=== PATIENT | male | born 1990 | race African-American/Black ===

== ENCOUNTER 2023-10-06 01:53 | Inpatient (IN) | payer SELFPAY ==
[2023-10-06 02:50] LABS: Glucose,Whole Blood 88 mg/dL (70-110)
[2023-10-06] MEDS ORDERED: VANCOMYCIN IV PER PHARMACY 1 EACH MISC MISCELLANE PRN (03:27)
--- NOTE | 2023-10-06 03:35 | ED ---
Skin/Abscess/FB HPI - General Chief complaint: Skin/Abscess/Foreign Body Stated complaint: Left leg injury Time Seen by Provider: 10/06/23 02:17 Source: patient Limitations: no limitations - History of Present Illness Initial comments: 33-year-old male presenting with chief complaint of wound to the left lower leg. Patient states that he has had this wound for the last month or 2. He denies any injury or trauma. States that for the last week it has been weeping and today it is sticking to his pants. He is unable to remove the fabric of the pants from the wound. He denies any fevers. No history of diabetes or hypertension. No history of neuropathy. No nausea vomiting or weakness. - Related Data Home Medications Medication Instructions Recorded Confirmed No Known Home Medications 10/06/23 10/06/23 Allergies Allergy/AdvReac Type Severity Reaction Status Date / Time No Known Allergies Allergy Verified 10/06/23 06:54 Review of Systems ROS Statement: Those systems with pertinent positive or pertinent negative responses have been documented in the HPI. ROS Other: All systems not noted in ROS Statement are negative. Past Medical History Past Medical History: No Reported History History of Any Multi-Drug Resistant Organisms: None Reported Past Surgical History: No Surgical Hx Reported Past Psychological History: No Psychological Hx Reported Smoking Status: Never smoker Past Alcohol Use History: Rare Past Drug Use History: None Reported General Exam Limitations: no limitations General appearance: alert, in no apparent distress Head exam: Present: atraumatic, normocephalic Eye exam: Present: normal appearance, EOMI Neck exam: Present: normal inspection Respiratory exam: Absent: respiratory distress Cardiovascular Exam: Present: regular rate Left Lower Leg exam: Present: deformity (There is a large ulceration present to the left lower leg. Normal capillary refill.) Neurological exam: Present: alert, oriented X3 Psychiatric exam: Present: normal affect, normal mood Skin exam: Present: other (Large ulceration to the left lower leg) Course Vital Signs 10/06/23 10/06/23 10/06/23 02:02 06:54 07:42 Temperature 98.8 F 97.9 F Pulse Rate 84 71 74 Respiratory 18 16 18 Rate Blood Pressure 138/79 126/78 130/78 O2 Sat by Pulse 98 95 98 Oximetry 10/06/23 10/06/23 10/06/23 09:15 10:52 11:39 Temperature Pulse Rate 81 89 74 Respiratory 18 16 18 Rate Blood Pressure 118/54 103/86 111/62 O2 Sat by Pulse 96 96 97 Oximetry 10/06/23 10/06/23 10/06/23 12:51 14:32 15:42 Temperature 98.3 F 98.5 F Pulse Rate 75 63 70 Respiratory 18 20 18 Rate Blood Pressure 117/62 134/59 146/82 O2 Sat by Pulse 95 97 95 Oximetry Medical Decision Making - Medical Decision Making Was pt. sent in by a medical professional or institution (, PA, DIGITAL ACCOUNT DIRECTOR, urgent care, hospital, or long-term...) When possible be specific @ -No Did you speak to anyone other than the patient for history (EMS, parent, family, police, friend...)? What history was obtained from this source @ -No Did you review nursing and triage notes (agree or disagree)? Why? @ -I reviewed and agree with nursing and triage notes Were old charts reviewed (outside hosp., previous admission, EMS record, old EKG, old radiological studies, urgent care reports/EKG's, long-term records)? Report findings @ -No old charts were reviewed Differential Diagnosis (chest pain, altered mental status, abdominal pain women, abdominal pain men, vaginal bleeding, weakness, fever, dyspnea, syncope, headache, dizziness, GI bleed, back pain, seizure, CVA, palpatations, mental health, musculoskeletal)? @ -Differential Musculoskeletal Muscular strain, contusion, ligament sprain, fracture, arthritis, septic arthritis, bursitis, cellulitis, muscle spasm, nerve compression, DVT, arterial occlusion, herpes zoster, electrolyte abnormality, tumor.... This is not meant to be in all inclusive list EKG interpreted by me (3pts min.). @ -As above X-rays interpreted by me (1pt min.). @ -X-ray shows a triple arthrodesis changes with osseous ankylosis. Soft tissue swelling about the left lower extremity extending to the foot. No evidence of soft tissue gas. Consider cross-sectional imaging or MRI of further concern for irregularity noted overlying the calcaneus which may relate to ulcer formation. Pes planus. Hammertoe deformities noted to the second-fifth digits. CT interpreted by me (1pt min.). @ -None done U/S interpreted by me (1pt. min.). @ -None done What testing was considered but not performed or refused? (CT, X-rays, U/S, labs)? Why? @ -None What meds were considered but not given or refused? Why? @ -None Did you discuss the management of the patient with other professionals (massimo phillips i.e. , ANA, DIGITAL ACCOUNT DIRECTOR, lab, RT, psych nurse, social media analyst, women's garment fitter, teacher, business enterprise officer, returned case inspector)? Give summary @ -My attending spoke with Dr. Mulligan accepted admission Was smoking cessation discussed for >3mins.? @ -No Was critical care preformed (if so, how long)? @ -No Were there social determinants of health that impacted care today? How? (Homelessness, low income, unemployed, alcoholism, drug addiction, transportation, low edu. Level, literacy, decrease access to med. care, usp, rehab)? @ -No Was there de-escalation of care discussed even if they declined (Discuss DNR or withdrawal of care, Hospice)? DNR status @ -No What co-morbidities impacted this encounter? (DM, HTN, Smoking, COPD, CAD, Cancer, CVA, ARF, Chemo, Hep., AIDS, mental health diagnosis, sleep apnea, morbid obesity)? @ -None Was patient admitted / discharged? Hospital course, mention meds given and route, prescriptions, significant lab abnormalities, going to OR and other pertinent info. @ -43-year-old male presenting chief complaint of wounds to the left lower leg. Chronic nonhealing wound has been there for about a month. He is now having foul drainage and increased swelling along with his pants sticking to the wound. Lab work shows no leukocytosis or anemia.. CMP is unremarkable. X-ray shows no evidence of osteomyelitis. Wound and blood cultures were taken and patient was started on vancomycin and Zosyn. Admitted with infectious disease consult. I discussed this case with my attending Dr. Parker Undiagnosed new problem with uncertain prognosis? @ -No Drug Therapy requiring intensive monitoring for toxicity (Heparin, Nitro, Insulin, Cardizem)? @ -No Were any procedures done? @ -No Diagnosis/symptom? @ -Leg wound, cellulitis Acute, or Chronic, or Acute on Chronic? @ -Acute Uncomplicated (without systemic symptoms) or Complicated (systemic symptoms)? @ -Complicated Side effects of treatment? @ -No Exacerbation, Progression, or Severe Exacerbation? @ -No Poses a threat to life or bodily function? How? (Chest pain, [place], CO, pneumonia, PE, COPD, DKA, ARF, appy, cholecystitis, CVA, Diverticulitis, Homicidal, Suicidal, threat to staff... and all critical care pts) @ -Yes - Lab Data Result diagrams: 10/06/23 03:18 10/06/23 03:18 Lab Results 10/06/23 10/06/23 10/06/23 Range/Units 02:48 03:18 03:18 WBC 5.8 (3.8-10.6) k/uL RBC 4.74 (4.30-5.90) m/uL Hgb 14.5 (13.0-17.5) gm/dL Hct 43.5 (39.0-53.0) % MCV 91.6 (80.0-100.0) fL MCH 30.6 (25.0-35.0) pg MCHC 33.4 (31.0-37.0) g/dL RDW 13.2 (11.5-15.5) % Plt Count 417 (150-450) k/uL MPV 8.1 Neutrophils % 53 % Lymphocytes % 29 % Monocytes % 8 % Eosinophils % 7 % Basophils % 1 % Neutrophils # 3.1 (1.3-7.7) k/uL Lymphocytes # 1.7 (1.0-4.8) k/uL Monocytes # 0.4 (0-1.0) k/uL Eosinophils # 0.4 (0-0.7) k/uL Basophils # 0.1 (0-0.2) k/uL Sodium 138 (137-145) mmol/L Potassium 4.4 (3.5-5.1) mmol/L Chloride 104 (98-107) mmol/L Carbon Dioxide 29 (22-30) mmol/L Anion Gap 5 mmol/L BUN 15 (9-20) mg/dL Creatinine 1.24 (0.66-1.25) mg/dL Est GFR (CKD-EPI)AfAm 88 (>60 ml/min/1.73 sqM) Est GFR (CKD-EPI)NonAf 76 (>60 ml/min/1.73 sqM) Glucose 91 (74-99) mg/dL POC Glucose (mg/dL) 88 (70-110) mg/dL POC Glu Senior Manufacturing Engineer ID Anai Douglass [address] Glu mg/dL mg/dL Hemoglobin A1c (<=6.0) % Plasma Lactic Acid Mathieu (0.7-2.0) mmol/L Calcium 8.9 (8.4-10.2) mg/dL Total Bilirubin 0.5 (0.2-1.3) mg/dL AST 32 (17-59) U/L ALT 26 (4-49) U/L Alkaline Phosphatase 78 (38-126) U/L Total Protein 7.6 (6.3-8.2) g/dL Albumin 4.2 (3.5-5.0) g/dL TSH (0.350-5.500) UIU/ML 10/06/23 10/06/23 10/06/23 Range/Units 03:18 03:18 03:18 WBC (3.8-10.6) k/uL RBC (4.30-5.90) m/uL Hgb (13.0-17.5) gm/dL Hct (39.0-53.0) % MCV (80.0-100.0) fL MCH (25.0-35.0) pg MCHC (31.0-37.0) g/dL RDW (11.5-15.5) % Plt Count (150-450) k/uL MPV Neutrophils % % Lymphocytes % % Monocytes % % Eosinophils % % Basophils % % Neutrophils # (1.3-7.7) k/uL Lymphocytes # (1.0-4.8) k/uL Monocytes # (0-1.0) k/uL Eosinophils # (0-0.7) k/uL Basophils # (0-0.2) k/uL Sodium (137-145) mmol/L Potassium (3.5-5.1) mmol/L Chloride (98-107) mmol/L Carbon Dioxide (22-30) mmol/L Anion Gap mmol/L BUN (9-20) mg/dL Creatinine (0.66-1.25) mg/dL Est GFR (CKD-EPI)AfAm (>60 ml/min/1.73 sqM) Est GFR (CKD-EPI)NonAf (>60 ml/min/1.73 sqM) Glucose (74-99) mg/dL POC Glucose (mg/dL) (70-110) mg/dL POC Glu Senior Manufacturing Engineer ID [address] Glu mg/dL 85 mg/dL Hemoglobin A1c 4.6 (<=6.0) % Plasma Lactic Acid Mathieu 1.0 (0.7-2.0) mmol/L Calcium (8.4-10.2) mg/dL Total Bilirubin (0.2-1.3) mg/dL AST (17-59) U/L ALT (4-49) U/L Alkaline Phosphatase (38-126) U/L Total Protein (6.3-8.2) g/dL Albumin (3.5-5.0) g/dL TSH 1.520 (0.350-5.500) UIU/ML Disposition Clinical Impression: Cellulitis Disposition: ADMITTED IP TO THIS HOSP Condition: Stable Time of Disposition: 03:36
[2023-10-06] MEDS ORDERED: MORPHINE SULFATE 4 MG/ML SYRINGE IV PRN (03:44)
[2023-10-06] MEDS ORDERED: IBUPROFEN 400 MG TAB PO PRN (03:44)
[2023-10-06] MEDS ORDERED: KETOROLAC 15 MG/ML 1 ML VIAL IVP PRN (03:44)
[2023-10-06] MEDS ORDERED: NALOXONE 0.4 MG/ML 1 ML VIAL IV PRN (03:44)
[2023-10-06] MEDS ORDERED: ACETAMINOPHEN TAB 325 MG TAB PO PRN (03:44)
[2023-10-06 03:55] LABS: ALT 26 U/L (4-49); AST 32 U/L (17-59); African American GFR (CKD) 88 (>60 ml/min/1.73 sqM); Albumin 4.2 g/dL (3.5-5.0); Alkaline Phosphatase 78 U/L (38-126); Anion Gap 5 mmol/L; Blood Urea Nitrogen 15 mg/dL (9-20); Calcium 8.9 mg/dL (8.4-10.2); Carbon Dioxide 29 mmol/L (22-30); Chloride 104 mmol/L (98-107); Glucose 91 mg/dL (74-99); Non-African American GFR(CKD) 76 (>60 ml/min/1.73 sqM); Potassium 4.4 mmol/L (3.5-5.1); Sodium 138 mmol/L (137-145); Total Bilirubin 0.5 mg/dL (0.2-1.3); Total Protein 7.6 g/dL (6.3-8.2)
[2023-10-06] MEDS: PIPERACILLIN-TAZOBACTAM 3.375 GM in SODIUM CHLORIDE 0.9% 100 ML IVPB STA (04:01)
[2023-10-06 04:31] LABS: Basophils # (A) 0.1 k/uL (0-0.2); Basophils % (A) 1 %; Eosinophils # (A) 0.4 k/uL (0-0.7); Eosinophils % (A) 7 %; HCT 43.5 % (39.0-53.0); HGB 14.5 gm/dL (13.0-17.5); Lymphocytes # (A) 1.7 k/uL (1.0-4.8); Lymphocytes % (A) 29 %; MCH 30.6 pg (25.0-35.0); MCHC 33.4 g/dL (31.0-37.0); MCV 91.6 fL (80.0-100.0); Mean Platelet Volume 8.1; Monocytes # (A) 0.4 k/uL (0-1.0); Monocytes % (A) 8 %; Neutrophils # (A) 3.1 k/uL (1.3-7.7); Neutrophils % (A) 53 %; Platelet Count 417 k/uL (150-450); RBC 4.74 m/uL (4.30-5.90); RDW 13.2 % (11.5-15.5); WBC 5.8 k/uL (3.8-10.6)
[2023-10-06] MEDS: VANCOMYCIN 1,750 MG in SODIUM CHLORIDE 0.9% 500 ML 500 ML IVPB STA (04:38)
[2023-10-06] MEDS: SODIUM CHLORIDE 0.9% 1,000 ML IV SCH (04:38)
--- NOTE | 2023-10-06 04:56 | XR ---
EXAM: 2 VIEWS OF THE LEFT TIBIA/FIBULA AND 3 VIEWS OF THE LEFT FOOT CLINICAL HISTORY: ITS.REASON XR Reason: infection TECHNIQUE: 2 views of the left tibia/fibula and 3 views of the left foot were obtained. COMPARISON: No relevant prior studies available. IMPRESSION: 1. Triple arthrodesis changes with osseous ankylosis. 2. Diffuse soft tissue swelling about the left lower extremity extending to the foot. No evidence of soft tissue gas. Consider cross-sectional imaging or MRI if there is further concern. 3. Irregularity noted overlying the calcaneus which may relate to ulcer formation. 4. Pes planus. Hammertoe deformities noted at the second-fifth digits.
[2023-10-06] MEDS: PIPERACILLIN-TAZOBACTAM 3.375 GM in SODIUM CHLORIDE 0.9% 100 ML IVPB SCH (12:43)
--- NOTE | 2023-10-06 14:34 | P.GSCN ---
History of Present Illness Consult date: 10/06/23 Reason for Consult: Left leg wound surgical debridement Requesting physician: Clyde Stephenson History of present illness: 33-year old -[place] male presented to the emergency department for concerns of drainage from his left lower extremity. Patient states he has a wound to the left lower extremity that started about a month ago. He states no injury to the lower extremity. He has not seen any physician for. States that he has been leaking and then now sticking to his pants. He denies any fevers or chills. Has lower extremity swelling and venous stasis. Denies any history of diabetes mellitus. Denies any fever or chills, shortness of breath, chest pain abdominal pain or nausea or vomiting. Review of Systems A 14 point review systems was completed all pertinent positives and negatives as stated in the HPI. Past Medical History Past Medical History: No Reported History History of Any Multi-Drug Resistant Organisms: None Reported Past Surgical History: No Surgical Hx Reported Past Psychological History: No Psychological Hx Reported Smoking Status: Never smoker Past Alcohol Use History: Rare Past Drug Use History: None Reported Medications and Allergies Home Medications Medication Instructions Recorded Confirmed Type No Known Home Medications 10/06/23 10/06/23 History Allergies Allergy/AdvReac Type Severity Reaction Status Date / Time No Known Allergies Allergy Verified 10/06/23 06:54 Surgical - Exam Vital Signs Temp Pulse Resp BP Pulse Ox 98.8 F 84 18 138/79 98 10/06/23 02:02 10/06/23 02:02 10/06/23 02:02 10/06/23 02:02 10/06/23 02:02 General appearance: The patient is alert, oriented, appears in no acute d istress. HET: Head is normocephalic and atraumatic. Pupils are equal and reactive. Neck: Supple. Heart: Regular. Lungs: Equal expansion, normal respiratory effort. Abdomen: Soft, nontender, nondistended. Extremities: Bilateral lower extremity swelling. Palpable bilateral pedal pulses, feet warm to the touch with good capillary refill. Venous stasis, venous dermatitis. Left lower extremity pineda with significant venous dermatitis/keratosis. Follow odor. Rocker-bottom foot. There is peeling skin to the left heel. There is also a scab noted on the bottom of the left mid foot. Neurological: No focal deficits. Strength and sensation are grossly intact. Results - Labs 10/06/23 03:18 10/06/23 03:18 Diabetes panel 10/06/23 Range/Units 03:18 Sodium 138 (137-145) mmol/L Potassium 4.4 (3.5-5.1) mmol/L Chloride 104 (98-107) mmol/L Carbon Dioxide 29 (22-30) mmol/L BUN 15 (9-20) mg/dL Creatinine 1.24 (0.66-1.25) mg/dL Glucose 91 (74-99) mg/dL Calcium 8.9 (8.4-10.2) mg/dL AST 32 (17-59) U/L ALT 26 (4-49) U/L Alkaline Phosphatase 78 (38-126) U/L Total Protein 7.6 (6.3-8.2) g/dL Albumin 4.2 (3.5-5.0) g/dL Calcium panel 10/06/23 Range/Units 03:18 Calcium 8.9 (8.4-10.2) mg/dL Albumin 4.2 (3.5-5.0) g/dL Pituitary panel 10/06/23 Range/Units 03:18 Sodium 138 (137-145) mmol/L Potassium 4.4 (3.5-5.1) mmol/L Chloride 104 (98-107) mmol/L Carbon Dioxide 29 (22-30) mmol/L BUN 15 (9-20) mg/dL Creatinine 1.24 (0.66-1.25) mg/dL Glucose 91 (74-99) mg/dL Calcium 8.9 (8.4-10.2) mg/dL Adrenal panel 10/06/23 Range/Units 03:18 Sodium 138 (137-145) mmol/L Potassium 4.4 (3.5-5.1) mmol/L Chloride 104 (98-107) mmol/L Carbon Dioxide 29 (22-30) mmol/L BUN 15 (9-20) mg/dL Creatinine 1.24 (0.66-1.25) mg/dL Glucose 91 (74-99) mg/dL Calcium 8.9 (8.4-10.2) mg/dL Total Bilirubin 0.5 (0.2-1.3) mg/dL AST 32 (17-59) U/L ALT 26 (4-49) U/L Alkaline Phosphatase 78 (38-126) U/L Total Protein 7.6 (6.3-8.2) g/dL Albumin 4.2 (3.5-5.0) g/dL - Imaging Comments: Left tib-fib and foot x-ray Triple arthrodesis changes with osseous ankylosis. Diffuse soft tissue swelling about the left lower extremity extending to the foot. No evidence of soft tissue gas. Consider cross-sectional imaging or MRI if there is further concern. Irregularity noted overlying the calcaneus which may relate to ulcer formation. Penis planus. Hammertoe deformities noted at the second and fifth digits Assessment and Plan Assessment: 1. Cellulitis 2. Venous stasis with venous dermatitis/keratosis to left lower extremity 3. Lower extremity swelling 4. Obesity Plan: 1. Continue with antibiotic recommendations from infectious disease 2. Soak left lower extremity in warm soapy water and scrub the dry skin/keratosis off 3. Recommend bilateral lower extremity DARBY hose 4. Recommend weight loss 5. Further recommendations forthcoming per vascular surgeon Thank you for this consultation. The impression and plan of care has been dictated as directed. I performed a history and examination of this patient, discussed the same with the dictator. I agree with the dictator's note ,documented as a scribe. Any additional findings or plans will be noted.
[2023-10-06] MEDS ORDERED: AMPICILLIN-SULBACTAM 3 GM in SODIUM CHLORIDE 0.9% 100 ML IVPB SCH (18:00)
[2023-10-06] MEDS: VANCOMYCIN 1,750 MG in SODIUM CHLORIDE 0.9% 500 ML 500 ML IVPB SCH (18:58)
--- NOTE | 2023-10-06 21:06 | XR ---
EXAMINATION TYPE: XR chest 2V DATE OF EXAM: 10/06/2023 9:04 PM CLINICAL INDICATION:Male, 33 years old with history of jerod; [facility] COMPARISON: None TECHNIQUE: XR chest 2V Frontal and lateral views of the chest. FINDINGS: Lungs/Pleura: There is no evidence of pleural effusion, focal consolidation, or pneumothorax. Pulmonary vascularity: Unremarkable. Heart/mediastinum: Cardiomediastinal silhouette is unremarkable. Musculoskeletal: No acute osseous pathology. IMPRESSION: No acute cardiopulmonary disease/process.
[2023-10-06] MEDS: AMPICILLIN-SULBACTAM 3 GM in SODIUM CHLORIDE 0.9% 100 ML IVPB SCH (22:00)
--- NOTE | 2023-10-06 22:46 | P.CONS ---
History of Present Illness - Reason for Consult Consult date: 10/06/23 Lower leg wound Requesting physician: Quyen Paz - Chief Complaint Increasing pain and redness to the left leg x few days - History of Present Illness Patient is a 33-year-old -Lith[place]ian male with no significant past medical history presenting to the hospital for evaluation of nonhealing wound to the left lower extremity with the patient has for about a month patient not very clear how it started however denies any history of any trauma patient has been concerned that his pants has been sticking to his left lower extremity and was complaining of increasing swelling and redness along with some foul-smelling drainage complaining of some pain mostly dull aching mild in intensity without any radiation with the symptoms the patient has been evaluated on presentation to the hospital the patient was afebrile and no fever has been recorded subsequently patient was not tachycardic hypotensive or hypoxic white count was 5.8 creatinine was 1.24 electrolytes were normal liver enzymes are normal local cultures obtained currently pending patient did have x-ray of the tibia and fibula and the foot did not show any bony abnormality patient was started on vancomycin and Zosyn infectious disease was consulted for further management of antibiotic therapy Review of Systems Positive point and negatives has been mentioned in the HPI, complete review of systems was performed and all other systems are negative Past Medical History Past Medical History: No Reported History History of Any Multi-Drug Resistant Organisms: None Reported Past Surgical History: No Surgical Hx Reported Past Psychological History: No Psychological Hx Reported Smoking Status: Never smoker Past Alcohol Use History: Rare Past Drug Use History: None Reported Medications and Allergies Home Medications Medication Instructions Recorded Confirmed Type Amoxic-Pot Clav 875-125Mg 1 tab PO Q12HR 10 Days #20 tab 10/10/23 Rx [Augmentin 875-125] Allergies Allergy/AdvReac Type Severity Reaction Status Date / Time No Known Allergies Allergy Verified 10/06/23 06:54 Physical Exam Vitals: Vital Signs Temp Pulse Resp BP Pulse Ox 10/06/23 10:52 89 16 103/86 96 10/06/23 09:15 81 18 118/54 96 10/06/23 07:42 97.9 F 74 18 130/78 98 10/06/23 06:54 71 16 126/78 95 10/06/23 02:02 98.8 F 84 18 138/79 98 Intake and Output 10/05/23 10/06/23 10/06/23 22:59 06:59 14:59 Other: Weight 106.594 kg GENERAL DESCRIPTION: Middle-aged male lying in bed, no distress. No tachypnea or accessory muscle of respiration use. HEENT: Shows Pallor , no scleral icterus. Oral mucous membrane is dry. No pharyngeal erythema or thrush NECK: Trachea central, no thyromegaly. LUNGS: Unlabored breathing. Clear to auscultation anteriorly. No wheeze or crackle. HEART: S1, S2, regular rate and rhythm. No loud murmur ABDOMEN: Soft, no tenderness , guarding or rigidity, no organomegaly EXTREMITIES: Left lower extremity diffuse swelling redness did have a superficial ulceration with dry crusted skin some foul-smelling SKIN: No rash, no masses palpable. NEUROLOGICAL: The patient is awake, alert, oriented x3, mood and affect normal. Results CBC & Chem 7: 10/09/23 05:41 10/10/23 03:50 Assessment and Plan (1) Left leg cellulitis Status: Acute Code(s): L03.116 - CELLULITIS OF LEFT LOWER LIMB SNOMED Code(s): 85967419966487075 (2) Venous ulcer of left leg Status: Acute Code(s): I83.029 - VARICOSE VEINS OF LEFT LOWER EXTREMITY W ULCER OF UNSP SITE; L97.929 - NON-PRS CHRONIC ULC UNSP PRT OF L LOW LEG W UNSP SEVERITY SNOMED Code(s): 0827978599 Plan: 1patient presented to hospital with a wound to the left lower extremity and this patient did have diffuse swelling and redness concerning for possible venous stasis ulcer with secondary cellulitis as there was evidence of some foul-smelling drainage likely from gram-positive skin nilsa gram-negative infection less likely but not entirely excluded 2-patient benefit from vascular surgery evaluation for vascular workup as well as debridement and deep culture 3-continue with the vancomycin however switch Zosyn to Unasyn to decrease risk o f nephrotoxicity We will follow on clinical condition and cultures to further adjust medication if needed Thank you for this consultation we will follow the patient along with you Dictation was produced using PingThingsation software. please excuse any grammatical, word or spelling errors. Time with Patient: Greater than 30
[2023-10-07 09:27] LABS: African American GFR (CKD) >90 (>60 ml/min/1.73 sqM); Anion Gap 2 mmol/L; Blood Urea Nitrogen 10 mg/dL (9-20); Calcium 8.9 mg/dL (8.4-10.2); Carbon Dioxide 26 mmol/L (22-30); Chloride 109 mmol/L (98-107); Glucose 89 mg/dL (74-99); Non-African American GFR(CKD) 79 (>60 ml/min/1.73 sqM); Potassium 4.4 mmol/L (3.5-5.1); Sodium 137 mmol/L (137-145)
--- NOTE | 2023-10-07 12:11 | P.PN ---
Subjective Progress Note Date: 10/07/23 Patient is seen and examined today as a follow-up. He remains afebrile. No complaints. Objective - Vital Signs Vital signs: Vital Signs Temp 98.2 F 10/07/23 07:10 Pulse 79 10/07/23 07:10 Resp 15 10/07/23 07:10 BP 108/57 10/07/23 07:10 Pulse Ox 99 10/07/23 07:10 FiO2 Intake & Output 10/06/23 10/07/23 10/07/23 18:59 06:59 18:59 Weight 106.594 kg Other: # Voids 0 1 - Exam General appearance: The patient is alert, oriented, appears in no acute distr ess. HET: Head is normocephalic and atraumatic. Pupils are equal and reactive. Neck: Supple. Abdomen: Soft, nontender, nondistended. Extremities: Bilateral lower extremity swelling. Palpable bilateral pedal pulses, feet warm to the touch with good capillary refill. Venous stasis, venous dermatitis. Left lower extremity pineda with significant venous dermatitis/keratosis. Follow odor. Rocker-bottom foot. There is peeling skin to the left heel. There is also a scab noted on the bottom of the left mid foot. Neurological: No focal deficits. Strength and sensation are grossly intact. - Labs CBC & Chem 7: 10/06/23 03:18 10/07/23 08:40 Labs: Microbiology - Last 24 Hours (Table) 10/06/23 03:15 Gram Stain - Preliminary Leg - Left Assessment and Plan Assessment: 1. Cellulitis 2. Venous stasis with venous dermatitis/keratosis to left lower extremity 3. Lower extremity swelling 4. Obesity Plan: 1. Continue with antibiotic recommendations from infectious disease 2. Soak left lower extremity in warm soapy water and scrub the dry skin/ keratosis off 3. Recommend bilateral lower extremity DARBY hose 4. Recommend weight loss 5. No plans at this time for surgical debridement Thank you for this consultation. The impression and plan of care has been dictated as directed. I performed a history and examination of this patient, discussed the same with the dictator. I agree with the dictator's note ,documented as a scribe. Any additional findings or plans will be noted.
--- NOTE | 2023-10-07 22:21 | P.PN ---
Subjective Progress Note Date: 10/07/23 Principal diagnosis: Reason for follow-up is left lower extremity ulcer and cellulitis Patient is a 33-year-old -[place] male presenting to the hospital with worsening swelling redness wound to the left lower extremity has been diagnosed with venous stasis ulcer concerning for possible secondary cellulitis. On today's evaluation that is 10/07/2023, patient has been afebrile, patient is breathing comfortably and is currently on room air, patient denies having any significant cough no chest pain shortness of breath, patient denies nausea vomiting or diarrhea and no abdominal pain, the patient pain and discomfort to the left leg is slightly decreased in intensity. Patient did have a creatinine of 1.19 no CBC was done today cultures are pending Objective - Vital Signs Vital signs: Vital Signs Temp 98.5 F 10/07/23 13:40 Pulse 77 10/07/23 13:40 Resp 16 10/07/23 13:40 BP 114/63 10/07/23 13:40 Pulse Ox 98 10/07/23 13:40 FiO2 Intake & Output 10/06/23 10/07/23 10/07/23 18:59 06:59 18:59 Weight 106.594 kg Other: Voiding Method Toilet # Voids 0 1 - Exam GENERAL DESCRIPTION: Middle-age male up in the room in no distress RESPIRATORY SYSTEM: Unlabored breathing , decreased breath sounds at bases HEART: S1 S2 regular rate and rhythm , ABDOMEN: Soft , no tenderness EXTREMITIES: Left leg swelling redness slightly decreased no drainage - Labs CBC & Chem 7: 10/06/23 03:18 10/07/23 08:40 Labs: Abnormal Lab Results - Last 24 Hours (Table) 10/07/23 Range/Units 08:40 Chloride 109 H (98-107) mmol/L Microbiology - Last 24 Hours (Table) 10/07/23 05:45 Gram Stain - Preliminary Leg - Left 10/06/23 03:15 Blood Culture - Preliminary Blood 10/06/23 03:00 Blood Culture - Preliminary Blood 10/06/23 03:15 Gram Stain - Preliminary Leg - Left Assessment and Plan (1) Venous ulcer of left leg Current Visit: Yes Status: Acute Code(s): I83.029 - VARICOSE VEINS OF LEFT LOWER EXTREMITY W ULCER OF UNSP SITE; L97.929 - NON-PRS CHRONIC ULC UNSP PRT OF L LOW LEG W UNSP SEVERITY SNOMED Code(s): 4510494431 (2) Left leg cellulitis Current Visit: Yes Status: Acute Code(s): L03.116 - CELLULITIS OF LEFT LOWER LIMB SNOMED Code(s): 77659762194340767 Plan: 1patient presented to hospital with a wound to the left lower extremity and this patient did have diffuse swelling and redness concerning for possible venous stasis ulcer with secondary cellulitis as there was evidence of some foul-smelling drainage likely from gram-positive skin nilsa gram-negative infection less likely but not entirely excluded 2-patient has been evaluated by vascular surgery and not recommending debridement, local care has been ordered 3-patient to continue with the vancomycin and Unasyn while waiting for the c ulture to finalize Dictation was produced using [employer] dictation software. please excuse any grammatical, word or spelling errors. Time with Patient: Less than 30
[2023-10-08 05:57] LABS: African American GFR (CKD) 87 (>60 ml/min/1.73 sqM); Non-African American GFR(CKD) 75 (>60 ml/min/1.73 sqM)
[2023-10-08] MEDS: VANCOMYCIN TROUGH DUE 1 EACH MISC MISCELLANE ONE (06:31)
--- NOTE | 2023-10-08 09:35 | P.PN ---
Subjective Progress Note Date: 10/08/23 Patient is seen and examined today as a follow-up. He remains afebrile. No complaints of left lower extremity pain. Patient has been soaking the left lower extremity and they were able to scrub some of the skin off. Objective - Vital Signs Vital signs: Vital Signs Temp 98.3 F 10/08/23 07:04 Pulse 66 10/08/23 07:04 Resp 18 10/08/23 07:04 BP 127/78 10/08/23 07:04 Pulse Ox 97 10/08/23 07:04 FiO2 Intake & Output 10/07/23 10/08/23 10/08/23 18:59 06:59 18:59 Other: Voiding Method Toilet Toilet # Voids 3 2 - Exam General appearance: The patient is alert, oriented, appears in no acute distress. HET: Head is normocephalic and atraumatic. Pupils are equal and reactive. Neck: Supple. Abdomen: Soft, nontender, nondistended. Extremities: Bilateral lower extremity swelling. Palpable bilateral pedal pulses, feet warm to the touch with good capillary refill. Venous stasis. Hyperpigmentation/keratosis improved after showering and scrubbing. Further skin removal/'s debridement done at the bedside. Rocker-bottom feet. Neurological: No focal deficits. Strength and sensation are grossly intact. - Labs CBC & Chem 7: 10/06/23 03:18 10/08/23 05:26 Labs: Abnormal Lab Results - Last 24 Hours (Table) 10/07/23 Range/Units 08:40 Chloride 109 H (98-107) mmol/L Microbiology - Last 24 Hours (Table) 10/07/23 05:45 Gram Stain - Preliminary Leg - Left 10/06/23 03:15 Blood Culture - Preliminary Blood 10/06/23 03:00 Blood Culture - Preliminary Blood Assessment and Plan Assessment: 1. Cellulitis 2. Venous stasis with venous dermatitis/keratosis to left lower extremity 3. Lower extremity swelling 4. Obesity Plan: 1. Continue with antibiotic recommendations from infectious disease 2. Soak left lower extremity in warm soapy water and scrub the dry skin/keratosis off 3. Bedside debridement completed by Dr. Zhang 4. Recommend bilateral lower extremity DARBY hose 5. Elevate lower extremities 6. Recommend weight loss 7. No plans at this time for surgical debridement 8. Consider discharging patient with azelaic acid or hydroquinonecream. Defer to infectious disease/wound care or primary medical care. Thank you for this consultation. Will sign off at this time. The impression and plan of care has been dictated as directed. I performed a history and examination of this patient, discussed the same with the dictator. I agree with the dictator's note ,documented as a scribe. Any additional findings or plans will be noted.
[2023-10-08] MEDS: ENOXAPARIN 40 MG/0.4 ML SYRINGE SQ SCH (13:02)
--- NOTE | 2023-10-08 14:26 | P.PN ---
Subjective Progress Note Date: 10/08/23 * 33-year-old -Polish male with no significant past medical history presenting to the hospital for evaluation of nonhealing wound to the left lower extremity * patient has been concerned that his pants has been sticking to his left lower extremity and was complaining of increasing swelling and redness along with some foul-smelling drainage complaining of some pain mostly dull aching mild in intensity without * white count was 5.8 creatinine was 1.24 electrolytes were normal liver enzymes are normal * X-ray of the tibia and fibula and the foot did not show any bony abnormality * Patient was started on vancomycin and Zosyn infectious disease was consulted * Patient was admitted with consultations obtained from surgery as well as infectious disease * 10/08/23 : Patient seen and evaluated continue patient on IV antibiotics receiving Unasyn and vancomycin, continue with wound care continue with pain control. SCDs for DVT prophylaxis started on Lovenox for DVT prophylax PHYSICAL EXAMINATION: GENERAL: The patient isalert and oriented x3, not in any acute distress. Well developed, well nourished. HEENT: Pupils are round and equally reacting to light. EOMI. No scleral icterus. No conjunctival pallor. Normocephalic, atraumatic. No pharyngeal erythema. No thyromegaly. CARDIOVASCULAR: S1 and S2 present. No murmurs, rubs, or gallops. PULMONARY: Chest is clear to auscultation, no wheezing or crackles. ABDOMEN: Soft, nontender, nondistended, normoactive bowel sounds. No palpable organomegaly. MUSCULOSKELETAL: No joint swelling or deformity. EXTREMITIES: No cyanosis, clubbing, or pedal edema. NEUROLOGICAL: Gross neurological examination did not reveal any focal deficits. SKIN: No rashes. Assessment and plan Cellulitis left lower extremity Venous status ulcer left lower extremity Obesity * Consultation obtained from wound care for left lower extremity ulcer, infectious disease following continue patient on IV antibiotics * Continue patient on Unasyn and vancomycin * Bedside debridement performed by vascular surgery * continue patient on DVT prophylaxis Objective - Vital Signs Vital signs: Vital Signs Temp 98.3 F 10/08/23 07:04 Pulse 66 10/08/23 07:04 Resp 18 10/08/23 07:04 BP 127/78 10/08/23 07:04 Pulse Ox 97 10/08/23 07:04 FiO2 Intake & Output 10/07/23 10/08/23 10/08/23 18:59 06:59 18:59 Other: Voiding Method Toilet Toilet # Voids 3 2 - Labs CBC & Chem 7: 10/06/23 03:18 10/08/23 05:26 Labs: Microbiology - Last 24 Hours (Table) 10/07/23 05:45 Gram Stain - Preliminary Leg - Left 10/06/23 03:15 Blood Culture - Preliminary Blood 10/06/23 03:00 Blood Culture - Preliminary Blood
--- NOTE | 2023-10-08 15:57 | P.PN ---
Subjective Progress Note Date: 10/08/23 Principal diagnosis: Reason for follow-up is left lower extremity ulcer and cellulitis Patient is a 33-year-old -[place]er male presenting to the hospital with worsening swelling redness wound to the left lower extremity has been diagnosed with venous stasis ulcer concerning for possible secondary cellulitis. On today's evaluation that is 10/08/2023,the patient denies any fever or any chills, patient is breathing comfortably on room air, the patient denies chest pain shortness of breath and no significant cough, patient denies abdominal pain, no nausea vomiting or diarrhea. Left lower extremity swelling and discomfort has decreased in intensity. Creatinine 1.25 blood culture negative local cultures so far negative Objective - Vital Signs Vital signs: Vital Signs Temp 98.3 F 10/08/23 07:04 Pulse 66 10/08/23 07:04 Resp 18 10/08/23 07:04 BP 127/78 10/08/23 07:04 Pulse Ox 97 10/08/23 07:04 FiO2 Intake & Output 10/07/23 10/08/23 10/08/23 18:59 06:59 18:59 Other: Voiding Method Toilet Toilet # Voids 3 2 - Exam GENERAL DESCRIPTION: Middle-age male up in the room in no distress RESPIRATORY SYSTEM: Unlabored breathing , decreased breath sounds at bases HEART: S1 S2 regular rate and rhythm , ABDOMEN: Soft , no tenderness EXTREMITIES: Left leg swelling redness slightly decreased no drainage - Labs CBC & Chem 7: 10/06/23 03:18 10/08/23 05:26 Labs: Abnormal Lab Results - Last 24 Hours (Table) 10/07/23 Range/Units 08:40 Chloride 109 H (98-107) mmol/L Microbiology - Last 24 Hours (Table) 10/07/23 05:45 Gram Stain - Preliminary Leg - Left 10/06/23 03:15 Blood Culture - Preliminary Blood 10/06/23 03:00 Blood Culture - Preliminary Blood Assessment and Plan (1) Venous ulcer of left leg Current Visit: Yes Status: Acute Code(s): I83.029 - VARICOSE VEINS OF LEFT LOWER EXTREMITY W ULCER OF UNSP SITE; L97.929 - NON-PRS CHRONIC ULC UNSP PRT OF L LOW LEG W UNSP SEVERITY SNOMED Code(s): 8627910759 (2) Left leg cellulitis Current Visit: Yes Status: Acute Code(s): L03.116 - CELLULITIS OF LEFT LOWER LIMB SNOMED Code(s): 51742394890720264 Plan: 1patient presented to hospital with a wound to the left lower extremity and this patient did have diffuse swelling and redness concerning for possible venous stasis ulcer with secondary cellulitis as there was evidence of some foul-smelling drainage likely from gram-positive skin nilsa gram-negative infection less likely but not entirely excluded 2-patient has been evaluated by vascular surgery and not recommending debridement, local care has been ordered 3-patient local culture has been negative for MRSA we will continue with Unasyn and discontinue vancomycin Dictation was produced using [employer] dictation software. please excuse any grammatical, word or spelling errors. Time with Patient: Less than 30
[2023-10-09 07:00] LABS: African American GFR (CKD) 76 (>60 ml/min/1.73 sqM); Anion Gap 4 mmol/L; Blood Urea Nitrogen 12 mg/dL (9-20); Calcium 8.7 mg/dL (8.4-10.2); Carbon Dioxide 27 mmol/L (22-30); Chloride 106 mmol/L (98-107); Glucose 82 mg/dL (74-99); Non-African American GFR(CKD) 66 (>60 ml/min/1.73 sqM); Potassium 4.3 mmol/L (3.5-5.1); Sodium 137 mmol/L (137-145)
[2023-10-09 09:52] LABS: HCT 42.5 % (39.6-50.0); HGB 13.6 g/dL (13.0-17.0); MCH 29.2 pg (27.0-32.0); MCV 91.4 FL (80.0-97.0); Mean Platelet Volume 9.6 FL (9.5-12.2); NRBC Per 100 WBC 0 X 10*3/uL (0.00-0.01); Platelet Count 323 X 10*3/uL (140-440); RBC 4.65 X 10*6/uL (4.40-5.60); RDW 12.5 % (11.5-14.5); WBC 3.74 X 10*3/uL (4.50-10.00)
--- NOTE | 2023-10-09 13:24 | P.PN ---
Subjective Progress Note Date: 10/09/23 * 33-year-old -Russian male with no significant past medical history presenting to the hospital for evaluation of nonhealing wound to the left lower extremity * patient has been concerned that his pants has been sticking to his left lower extremity and was complaining of increasing swelling and redness along with some foul-smelling drainage complaining of some pain mostly dull aching mild in intensity without * white count was 5.8 creatinine was 1.24 electrolytes were normal liver enzymes are normal * X-ray of the tibia and fibula and the foot did not show any bony abnormality * Patient was started on vancomycin and Zosyn infectious disease was consulted * Patient was admitted with consultations obtained from surgery as well as infectious disease * 10/08/23 : Patient seen and evaluated continue patient on IV antibiotics receiving Unasyn and vancomycin, continue with wound care continue with pain control. SCDs for DVT prophylaxis started on Lovenox for DVT prophylax * 10/09/23 : patient seen and evaluated bedside,vitals reviewed, blood work reviewed WBC 3.74 creatinine 1.39. Continue IV antibiotic plan to transition to oral within the next 24 hours and discharged home PHYSICAL EXAMINATION: GENERAL: The patient isalert and oriented x3, ill appearance HEENT: Pupils are round and equally reacting to light. EOMI. CARDIOVASCULAR: S1 and S2 present. No murmurs, rubs, or gallops. PULMONARY: Chest is clear to auscultation, no wheezing or crackles. ABDOMEN: Soft, nontender, nondistended, normoactive bowel sounds. No palpable organomegaly. MUSCULOSKELETAL: No joint swelling or deformity. EXTREMITIES: lower extremity edema noted NEUROLOGICAL: Gross neurological examination did not reveal any focal deficits. SKIN: left lower extremity skin changes, edema noted, warm to touch Assessment and plan Cellulitis left lower extremity status post debridement Venous status ulcer left lower extremity Obesity * Consultation obtained from wound care for left lower extremity ulcer, infectious disease following continue patient on IV antibioticson IV Unasyn * Continue patient on Unasyn , vancomycinwas discontinued * Bedside debridement performed by vascular surgeryon 10/08/23 * HbA1c within normal limits * continue patient on DVT prophylaxis Objective - Vital Signs Vital signs: Vital Signs Temp 98 F 10/09/23 06:56 Pulse 60 10/09/23 06:56 Resp 16 10/09/23 06:56 BP 144/78 10/09/23 06:56 Pulse Ox 100 10/09/23 06:56 FiO2 Intake & Output 10/08/23 10/09/23 10/09/23 18:59 06:59 18:59 Other: Voiding Method Toilet # Voids 2 - Labs CBC & Chem 7: 10/09/23 05:41 10/09/23 05:41 Labs: Abnormal Lab Results - Last 24 Hours (Table) 10/09/23 10/09/23 Range/Units 05:41 05:41 WBC 3.74 L (4.50-10.00) X 10*3/uL Creatinine 1.39 H (0.66-1.25) mg/dL Microbiology - Last 24 Hours (Table) 10/06/23 03:15 Blood Culture - Preliminary Blood 10/06/23 03:00 Blood Culture - Preliminary Blood 10/06/23 03:15 Gram Stain - Final Leg - Left Wound Culture - Final
--- NOTE | 2023-10-09 21:17 | P.PN ---
Subjective Progress Note Date: 10/09/23 Principal diagnosis: Reason for follow-up is left lower extremity ulcer and cellulitis Patient is a 33-year-old -[place] male presenting to the hospital with worsening swelling redness wound to the left lower extremity has been diagnosed with venous stasis ulcer concerning for possible secondary cellulitis. On today's evaluation that is 10/09/2023,the patient remains to be afebrile, patient is on room air not requiring supplemental oxygen and denies any shortness of breath no chest pain or cough.Patient denies having any nausea or vomiting, no abdominal pain and no diarrhea has been reported, overall swelling redness discomfort to the left leg has decreased in intensity. Patient white count is 3.74, creatinine is 1.39 culture has been negative Objective - Vital Signs Vital signs: Vital Signs Temp 98 F 10/09/23 06:56 Pulse 60 10/09/23 06:56 Resp 16 10/09/23 06:56 BP 144/78 10/09/23 06:56 Pulse Ox 100 10/09/23 06:56 FiO2 Intake & Output 10/08/23 10/09/23 10/09/23 18:59 06:59 18:59 Other: Voiding Method Toilet # Voids 2 - Exam GENERAL DESCRIPTION: Middle-age male up in the room in no distress RESPIRATORY SYSTEM: Unlabored breathing , decreased breath sounds at bases HEART: S1 S2 regular rate and rhythm , ABDOMEN: Soft , no tenderness EXTREMITIES: Left leg swelling redness has decreased no drainage. Exam completed with the help of COLLISION ESTIMATOR - Labs CBC & Chem 7: 10/09/23 05:41 10/09/23 05:41 Labs: Abnormal Lab Results - Last 24 Hours (Table) 10/09/23 10/09/23 Range/Units 05:41 05:41 WBC 3.74 L (4.50-10.00) X 10*3/uL Creatinine 1.39 H (0.66-1.25) mg/dL Microbiology - Last 24 Hours (Table) 10/06/23 03:15 Blood Culture - Preliminary Blood 10/06/23 03:00 Blood Culture - Preliminary Blood 10/06/23 03:15 Gram Stain - Final Leg - Left Wound Culture - Final Assessment and Plan (1) Venous ulcer of left leg Current Visit: Yes Status: Acute Code(s): I83.029 - VARICOSE VEINS OF LEFT LOWER EXTREMITY W ULCER OF UNSP SITE; L97.929 - NON-PRS CHRONIC ULC UNSP PRT OF L LOW LEG W UNSP SEVERITY SNOMED Code(s): 9715411699 (2) Left leg cellulitis Current Visit: Yes Status: Acute Code(s): L03.116 - CELLULITIS OF LEFT LOWER LIMB SNOMED Code(s): 38186178110122087 Plan: 1patient presented to hospital with a wound to the left lower extremity and this patient did have diffuse swelling and redness concerning for possible venous stasis ulcer with secondary cellulitis as there was evidence of some foul-smelling drainage likely from gram-positive skin nilsa gram-negative infect ion less likely but not entirely excluded 2-patient has been evaluated by vascular surgery and not recommending debridement, local care has been ordered 3-patient local culture has been negative for MRSA patient to continue with Unasyn finishing therapy with oral Augmentin and close outpatient follow-up Dictation was produced using [employer] dictation software. please excuse any grammatical, word or spelling errors. Time with Patient: Less than 30
[2023-10-10 04:17] VITALS: PULSE 62
[2023-10-10 04:38] LABS: African American GFR (CKD) 83 (>60 ml/min/1.73 sqM); Anion Gap 8 mmol/L; Blood Urea Nitrogen 13 mg/dL (9-20); Calcium 9.4 mg/dL (8.4-10.2); Carbon Dioxide 27 mmol/L (22-30); Chloride 104 mmol/L (98-107); Glucose 94 mg/dL (74-99); Non-African American GFR(CKD) 71 (>60 ml/min/1.73 sqM); Potassium 4.2 mmol/L (3.5-5.1); Sodium 139 mmol/L (137-145)
[2023-10-10 09:06] VITALS: BP 122/64; RESP 16; TEMP 97.5
--- NOTE | 2023-10-10 11:58 | P.DS ---
Providers Date of admission: 10/06/23 04:08 Expected date of discharge: 10/10/23 Attending physician: Christopher Mulligan Consults: 10/06/23 03:44 Consult Physician Urgent Consulting Provider: Clyde Stephenson Consult Reason/Comments: lower leg wound Do you want consulting provider notified?: Yes, Notify in am 10/06/23 13:00 Consult Physician Urgent Consulting Provider: Bambi Lipscomb Consult Reason/Comments: Left leg wound surgical debridement and deep culture Do you want consulting provider notified?: Yes Primary care physician: Stated None Hospital Course: * 33-year-old -Af[place] male with no significant past medical history presenting to the hospital for evaluation of nonhealing wound to the left lower extremity * patient has been concerned that his pants has been sticking to his left lower extremity and was complaining of increasing swelling and redness along with some foul-smelling drainage complaining of some pain mostly dull aching mild in intensity without * white count was 5.8 creatinine was 1.24 electrolytes were normal liver enzymes are normal * X-ray of the tibia and fibula and the foot did not show any bony abnormality * Patient was started on vancomycin and Zosyn infectious disease was consulted * Patient was admitted with consultations obtained from surgery as well as infectious disease * 10/08/23 : Patient seen and evaluated continue patient on IV antibiotics receiving Unasyn and vancomycin, continue with wound care continue with pain control. SCDs for DVT prophylaxis started on Lovenox for DVT prophylax * 10/09/23 : patient seen and evaluated bedside,vitals reviewed, blood work reviewed WBC 3.74 creatinine 1.39. Continue IV antibiotic plan to transition to oral within the next 24 hours and discharged home * 10/10/23: Patient seen and evaluated at bedside, patient to be discharged home patient transition to oral Augmentin, prescription provided by infectious disease, outpatient follow-up with infectious disease recommended within 1 week, PHYSICAL EXAMINATION: GENERAL: The patient isalert and oriented x3, appears well HEENT: Pupils are round and equally reacting to light. EOMI. CARDIOVASCULAR: S1 and S2 present. No murmurs, rubs, or gallops. PULMONARY: Chest is clear to auscultation, no wheezing or crackles. ABDOMEN: Soft, nontender, nondistended, normoactive bowel sounds. No palpable organomegaly. MUSCULOSKELETAL: No joint swelling or deformity. EXTREMITIES: lower extremity edema noted NEUROLOGICAL: Gross neurological examination did not reveal any focal deficits. SKIN: left lower extremity skin changes, warmth has resolved, erythema has improved Assessment and plan Cellulitis left lower extremity status post debridement Venous status ulcer left lower extremity Obesity * Consultation obtained from wound care for left lower extremity ulcer, infectious disease following continue patient on IV antibioticson IV Unasyn, transition to Augmentin for additional 7 days * Continue patient on Unasyn , vancomycinwas discontinued * Bedside debridement performed by vascular surgeryon 10/08/23 * HbA1c within normal limits * While inpatient patient was on DVT Patient Condition at Discharge: Stable Plan - Discharge Summary Discharge Rx Participant: Yes New Discharge Prescriptions: New Amoxic-Pot Clav 875-125Mg [Augmentin 875-125] 1 tab PO Q12HR 10 Days #20 tab Discharge Medication List Amoxic-Pot Clav 875-125Mg [Augmentin 875-125] 1 tab PO Q12HR 10 Days #20 tab 10/10/23 [Rx] Follow up Appointment(s)/Referral(s): None,Stated [Primary Care Provider] - 1-2 days (Please call a primary care provider for follow-up appointment.) Clyde Stephenson MD [STAFF PHYSICIAN] - 1 Week (Office is closed at time of dischagre. Please call for follow-up appointment.) Discharge Disposition: HOME SELF-CARE
[2023-10-10] MEDS: AMOXIC-POT CLAV 875-125MG 1 EACH TAB PO SCH (12:16)
--- NOTE | 2023-10-12 18:10 | CDI ---
Documentation Clarification Form Date: 10/12/2023 05:57:42 PM From: Julieta Arambula Phone: Admit Date: 10/06/2023 04:08:00 AM Patient Name: Dillan Hong Visit Number: [id number] Discharge Date: 10/10/2023 02:22:00 PM ATTENTION: The Clinical Documentation Specialists (CDI) and [facility] Coding Staff appreciate your assistance in clarifying documentation. Please respond to the clarification below the line at the bottom and electronically sign. The CDI & [facility] Coding staff will review the response and follow-up if needed. Please note: Queries are made part of the Legal Health Record. If you have any questions, please contact the author of this message via ITS. Dr. Paul Zhang There is documentation of a venous stasisulcerof Lt Calcaneus with bedside debridement per 10/07 Progress Note. Additional specificity regarding the severity of the wound and type of debridement of the wound is requested. Patient history/risk factors: 33yo M, venous stasisulcerw cellulitis Lt Calcaneus, obesity, Rocker-bottom feet, keratosis Clinical Indicators: Wound assessment: BLE swelling. Palpablebilateral pedal pulses, feet warm to the touch with good capillary refill. Treatment: Hyperpigmentation/keratosisimproved after showering and scrubbing. Further skinremoval/debridementdone at the bedside. Please clarify the severity of the wound and type of debridement: Severity: [ x ] Limited to breakdown of skin [ ] With fat layer exposed [ ] Other, Please specify [ ] Unable to determine Debridement performed: [ ] Excisional (the removal of necrotic, devitalized tissue or slough by means of cutting away of tissue) [ x ] Non-excisional (the removal of necrotic, devitalized tissue or slough by means of flushing, brushing, or washing. (Irrigation) [ ] Other; please specify [ ] Unable to determine Five elements required for accurate and compliant documentation of a debridement: Technique used (e.g., excisional, excised, cutting, brushing, jet lavage etc.) Instrument(s) used (e.g., scalpel, curette, etc.) Nature of the tissue removed (e.g., necrotic, devitalized tissues, non-viable tissue, etc.) Appearance and size of the wound (e.g., down to fresh bleeding tissue, 7cm x 10cm, etc.) Depth of the debridement* (e.g., skin, subcutaneous tissue, fascia, muscle, bone, etc.) (Template Last Revised: August 2020) (Template Last Revised: August 2020) MTDD
--- NOTE | 2023-10-15 15:39 | P.PN ---
Subjective Progress Note Date: 10/10/23 Principal diagnosis: Reason for follow-up is left lower extremity ulcer and cellulitis Patient is a 33-year-old -[place] male presenting to the hospital with worsening swelling redness wound to the left lower extremity has been diagnosed with venous stasis ulcer concerning for possible secondary cellulitis. On today's evaluation that is 10/10/2023, the patient continues to be afebrile, the patient is on room air and breathing comfortably, the Pt denies having any chest pain or cough, the patient denies having any abdominal pain no vomiting or any diarrhea has been reported by the nursing staff, the patient pain to the left leg has decreased intensity no drainage. Patient did have a creatinine 1.30 no CBC was done today culture has been negative so far Objective - Vital Signs Vital signs: Vital Signs Temp 97.5 F L 10/10/23 07:14 Pulse 62 10/10/23 07:14 Resp 16 10/10/23 07:14 BP 122/64 10/10/23 07:14 Pulse Ox 97 10/10/23 07:14 FiO2 Intake & Output 10/09/23 10/10/23 10/10/23 18:59 06:59 18:59 Output Total 1490 Balance -1490 Output: Urine 1490 Other: Voiding Method Toilet # Bowel Movements 1 - Exam GENERAL DESCRIPTION: Middle-age male up in the room in no distress RESPIRATORY SYSTEM: Unlabored breathing , decreased breath sounds at bases HEART: S1 S2 regular rate and rhythm , ABDOMEN: Soft , no tenderness EXTREMITIES: Left leg swelling redness has decreased no drainage. Exam completed with the help of MOTOR POLAR[employer]ER - Labs CBC & Chem 7: 10/09/23 05:41 10/10/23 03:50 Labs: Abnormal Lab Results - Last 24 Hours (Table) 10/09/23 10/10/23 Range/Units 05:41 03:50 WBC 3.74 L (4.50-10.00) X 10*3/uL Creatinine 1.30 H (0.66-1.25) mg/dL Microbiology - Last 24 Hours (Table) 10/07/23 05:45 Anaerobic Culture - Preliminary Leg - Left 10/06/23 03:15 Blood Culture - Preliminary Blood 10/06/23 03:00 Blood Culture - Preliminary Blood 10/07/23 05:45 Gram Stain - Final Leg - Left Wound Culture - Final Assessment and Plan (1) Venous ulcer of left leg Status: Acute Code(s): I83.029 - VARICOSE VEINS OF LEFT LOWER EXTREMITY W ULCER OF UNSP SITE; L97.929 - NON-PRS CHRONIC ULC UNSP PRT OF L LOW LEG W UNSP SEVERITY SNOMED Code(s): 1811840569 (2) Left leg cellulitis Status: Acute Code(s): L03.116 - CELLULITIS OF LEFT LOWER LIMB SNOMED Code(s): 00743053011038648 Plan: 1patient presented to hospital with a wound to the left lower extremity and this patient did have diffuse swelling and redness concerning for possible venous stasis ulcer with secondary cellulitis as there was evidence of some foul-smelling drainage likely from gram-positive skin nilsa gram-negative infection less likely but not entirely excluded 2-patient has been evaluated by vascular surgery and not recommending debridement, local care has been ordered 3-patient local culture has been negative, plan to finish therapy with oral Augmentin and close outpatient follow-up discussed with admitting team Dictation was produced using [employer] dictation software. please excuse any grammatical, word or spelling errors. Time with Patient: Less than 30
--- NOTE | 2023-10-18 06:55 | HP ---
HISTORY AND PHYSICAL A 33-year-old complaining of the wound to the left lower leg. He had this for last 2 months. No injury or trauma . He is admitted to hospital for further care. HOME MEDICATIONS: Negative. ALLERGIES: Negative. REVIEW OF SYSTEMS: 14-point review of systems otherwise negative. PAST MEDICAL HISTORY: Negative. PHYSICAL EXAMINATION: VITAL SIGNS: Temp 98.8, blood pressure 130s to 120s over 70s to 80s, O2 is 98. Respiratory rate 16 to 18. CARDIOVASCULAR: S1-S2. LUNGS: Transmitted upper sounds. GI: Soft. MUSCULOSKELETAL: Negative Homans. NEUROLOGIC: Cranial nerves intact. PSYCH: Fair mood and affect. SKIN: Some large ulceration to left lower leg. LABS: Reviewed. He has cellulitis of the lower legs. Started on IV antibiotics. We will get Infectious Disease consult. Please see further orders. MMODL / IJN: [id number] /
== END 2023-10-10 14:22 | disposition home or self-care (01) | DRG 300 ==
LOC: EC 01:53 → 4SSUR 04:08
PROVIDERS: ADMIT Family Medicine; ATTEND Family Medicine
PROC: 0HBNXZZ Excision of Left Foot Skin, External Approach (ICD-10-PCS; principal; 2023-10-08)
DX: I83.224 Varicose veins of left lower extremity with both ulcer of heel and midfoot and inflammation (principal); L03.116 Cellulitis of left lower limb; L97.421 Non-pressure chronic ulcer of left heel and midfoot limited to breakdown of skin; E66.9 Obesity, unspecified; I87.8 Other specified disorders of veins; M79.89 Other specified soft tissue disorders; M24.675 Ankylosis, left foot; L57.0 Actinic keratosis; B96.89 Other specified bacterial agents as the cause of diseases classified elsewhere; Q66.81 Congenital vertical talus deformity, right foot; Q66.82 Congenital vertical talus deformity, left foot; Z68.28 Body mass index [BMI] 28.0-28.9, adult
CPT/HCPCS: 36415; 71046; 80048; 80053; 80202; 82565; 83036; 83605; 84443; 85025; 85027; 87040; 87070; 87075; 87205; 96361; 96365; 96366; 96367; 99285

== ENCOUNTER 2023-10-27 00:01 | Emergency (ER) | payer SELFPAY ==
--- NOTE | 2023-10-27 00:26 | ED ---
Abdominal Pain HPI - General Source: patient Mode of arrival: ambulatory Limitations: no limitations <Quyen Paz - Last Filed: 10/27/23 03:28> - History of Present Illness MD Complaint: abdominal pain -: days(s) Location: diffuse, LUQ, epigastric Radiation: epigastric Migration to: LUQ Severity: moderate Severity scale (1-10): 4 Consistency: intermittent Improves With: nothing Worsens With: nothing <Luis Angel Parker - Last Filed: 11/07/23 21:40> - General Chief Complaint: Abdominal Pain Stated Complaint: abd pain NVD Time Seen by Provider: 10/27/23 00:25 - History of Present Illness Initial Comments: 33-year-old male presenting with chief complaint of abdominal pain. Patient admits to sharper left upper quadrant pain. Pain has been ongoing for the last 3 days. He also admits to frequent diarrhea. He admits to nausea with no vomiting. No chest pain or difficulty breathing. No hematemesis, hematochezia, melena. No history of abdominal surgeries. No fevers. (Quyen Paz) This 33-year-old male to ER for evaluation of left upper quadrant pain epigastric abdominal pain persistent nausea and vomiting. (Luis Angel Parker) - Related Data Previous Rx's Medication Instructions Recorded Amoxic-Pot Clav 875-125Mg 1 tab PO Q12HR 10 Days #20 tab 10/10/23 [Augmentin 875-125] Allergies Allergy/AdvReac Type Severity Reaction Status Date / Time No Known Allergies Allergy Verified 10/27/23 00:20 Review of Systems ROS Other: All systems not noted in ROS Statement are negative. <Quyen Paz - Last Filed: 10/27/23 03:28> ROS Other: All systems not noted in ROS Statement are negative. <Luis Angel Parker - Last Filed: 11/07/23 21:40> ROS Statement: Those systems with pertinent positive or pertinent negative responses have been documented in the HPI. Past Medical History Past Medical History: No Reported History History of Any Multi-Drug Resistant Organisms: None Reported Past Surgical History: No Surgical Hx Reported Past Anesthesia/Blood Transfusion Reactions: Unable to Obtain Past Psychological History: No Psychological Hx Reported Smoking Status: Never smoker Past Alcohol Use History: Rare Past Drug Use History: None Reported <Quyen Paz - Last Filed: 10/27/23 03:28> General Exam Limitations: no limitations General appearance: alert, in no apparent distress Head exam: Present: atraumatic, normocephalic Eye exam: Present: normal appearance, EOMI Neck exam: Present: normal inspection. Absent: meningismus Respiratory exam: Present: normal lung sounds bilaterally. Absent: respiratory distress, wheezes, rales, rhonchi, stridor Cardiovascular Exam: Present: regular rate, normal rhythm, normal heart sounds. Absent: systolic murmur, diastolic murmur, rubs, gallop, clicks GI/Abdominal exam: Present: soft, tenderness, guarding. Absent: distended, rebo und, rigid Neurological exam: Present: alert, oriented X3 Psychiatric exam: Present: normal affect, normal mood Skin exam: Present: warm, dry <Wen Paznabor - Last Filed: 10/27/23 03:28> General appearance: alert, in no apparent distress Head exam: Present: atraumatic, normocephalic, normal inspection Eye exam: Present: normal appearance, PERRL, EOMI. Absent: scleral icterus, conjunctival injection, periorbital swelling ENT exam: Present: normal exam, mucous membranes moist Neck exam: Present: normal inspection. Absent: tenderness, meningismus, lymphadenopathy Respiratory exam: Present: normal lung sounds bilaterally. Absent: respiratory distress, wheezes, rales, rhonchi, stridor Cardiovascular Exam: Present: regular rate, normal rhythm, normal heart sounds. Absent: systolic murmur, diastolic murmur, rubs, gallop, clicks GI/Abdominal exam: Present: soft, normal bowel sounds. Absent: distended, tenderness, guarding, rebound, rigid Extremities exam: Present: normal inspection, full ROM, normal capillary refill. Absent: tenderness, pedal edema, joint swelling, calf tenderness Back exam: Present: normal inspection Neurological exam: Present: alert, oriented X3, CN II-XII intact Psychiatric exam: Present: normal affect, normal mood Skin exam: Present: warm, dry, intact, normal color. Absent: rash <Luis Angel Parker - Last Filed: 11/07/23 21:40> - General Exam Comments Initial Comments: Visual Physical Exam Vital signs reviewed General: Well-appearing, nontoxic, no acute distress. Head: Normocephalic, atraumatic Eyes: PERRLA, EOMI ENT: Airway patent Chest: Nonlabored breathing Skin: No visual rash, normal skin tone Neuro: Alert and oriented 3 Musculoskeletal: No gross abnormalities (Quyen Paz) Course <Luis Angel Parker - Last Filed: 11/07/23 21:40> Vital Signs 10/27/23 10/27/23 00:18 05:43 Temperature 99.2 F 97.8 F Pulse Rate 93 80 Respiratory 18 18 Rate Blood Pressure 117/71 125/72 O2 Sat by Pulse 96 98 Oximetry - Reevaluation(s) Reevaluation #1: 10/27/23 03:44 Medical records reviewed (Luis Angel Parker) Reevaluation #2: 10/27/23 03:44 Patient symptoms improved (Luis Angel Parker) Reevaluation #3: 10/27/23 03:44 Patient informed of results questions answered (Luis Angel Parker) Reevaluation #5: Differential Abdominal Pain Men: Appendicitis, cholecystitis, diverticulosis, ischemic bowel, pancreatitis, hepatitis, UTI, gastroenteritis, AAA, incarcerated hernia, bowel obstruction, constipation, inflammatory bowel, hepatitis, peptic ulcer disease, splenic infarction, perforated viscus, testicular torsion, this is not meant to be an all-inclusive list (Luis Angel Parker) Medical Decision Making - Lab Data Result diagrams: 10/27/23 00:54 10/27/23 00:54 <Quyen Paz - Last Filed: 10/27/23 03:28> - Lab Data Result diagrams: 10/27/23 00:54 10/27/23 00:54 - Radiology Data Radiology results: report reviewed (CT of the abdomen pelvis positive colitis), image reviewed <Luis Angel Parker - Last Filed: 11/07/23 21:40> - Medical Decision Making Was pt. sent in by a medical professional or institution (, PA, DIRECTOR GROUP SALES, urgent ca re, hospital, or senior care...) When possible be specific @ -No Did you speak to anyone other than the patient for history (EMS, parent, family, police, friend...)? What history was obtained from this source @ -No Did you review nursing and triage notes (agree or disagree)? Why? @ -I reviewed and agree with nursing and triage notes Were old charts reviewed (outside hosp., previous admission, EMS record, old EKG, old radiological studies, urgent care reports/EKG's, senior care records)? Report findings @ -No old charts were reviewed Differential Diagnosis (chest pain, altered mental status, abdominal pain women, abdominal pain men, vaginal bleeding, weakness, fever, dyspnea, syncope, headache, dizziness, GI bleed, back pain, seizure, CVA, palpatations, mental health, musculoskeletal)? @ -MDM Differential Abdominal Pain Men: Appendicitis, cholecystitis, diverticulosis, ischemic bowel, pancreatitis, hepatitis, UTI, gastroenteritis, AAA, incarcerated hernia, bowel obstruction, constipation, inflammatory bowel, hepatitis, peptic ulcer disease, splenic infarction, perforated viscus, testicular torsion... This is not meant to be an all-inclusive list EKG interpreted by me (3pts min.). @ -As above X-rays interpreted by me (1pt min.). @ -None done CT interpreted by me (1pt min.). @ -Final report is pending U/S interpreted by me (1pt. min.). @ -None done What testing was considered but not performed or refused? (CT, X-rays, U/S, labs)? Why? @ -None What meds were considered but not given or refused? Why? @ -None Did you discuss the management of the patient with other professionals (professionals i.e. , PA, DIRECTOR GROUP SALES, lab, RT, psych nurse, group social worker, schedule manager, teacher, certification officer, counseling case manager)? Give summary @ -No Was smoking cessation discussed for >3mins.? @ -No Was critical care preformed (if so, how long)? @ -No Were there social determinants of health that impacted care today? How? (Homelessness, low income, unemployed, alcoholism, drug addiction, transportation, low edu. Level, literacy, decrease access to med. care, long term, rehab)? @ -No Was there de-escalation of care discussed even if they declined (Discuss DNR or withdrawal of care, Hospice)? DNR status @ -No What co-morbidities impacted this encounter? (DM, HTN, Smoking, COPD, CAD, Ca ncer, CVA, ARF, Chemo, Hep., AIDS, mental health diagnosis, sleep apnea, morbid obesity)? @ -None Was patient admitted / discharged? Hospital course, mention meds given and route, prescriptions, significant lab abnormalities, going to OR and other pertinent info. @ -33-year-old male presenting with chief complaint of left upper quadrant pain and diarrhea. History and physical exam are conducted. Lab work shows no leukocytosis or anemia. Total bilirubin 2.1 AST [address] results are p ending. Patient is signed out to my attending Dr. Parker, for further management and disposition (Quyen Paz) 33 male to ER for evaluation of significant cellulitis significant abdominal pain CT scan is positive for colitis. Patient feels well can be discharged home (Luis Angel Parker) - Lab Data Lab Results 10/27/23 10/27/23 10/27/23 Range/Units 00:54 00:54 00:54 WBC 6.5 (3.8-10.6) k/uL RBC 4.93 (4.30-5.90) m/uL Hgb 14.7 (13.0-17.5) gm/dL Hct 46.2 (39.0-53.0) % MCV 93.7 (80.0-100.0) fL MCH 29.7 (25.0-35.0) pg MCHC 31.7 (31.0-37.0) g/dL RDW 13.0 (11.5-15.5) % Plt Count 317 (150-450) k/uL MPV 7.4 Neutrophils % 80 % Lymphocytes % 7 % Monocytes % 7 % Eosinophils % 4 % Basophils % 0 % Neutrophils # 5.2 (1.3-7.7) k/uL Lymphocytes # 0.5 L (1.0-4.8) k/uL Monocytes # 0.5 (0-1.0) k/uL Eosinophils # 0.2 (0-0.7) k/uL Basophils # 0.0 (0-0.2) k/uL Sodium 137 (137-145) mmol/L Potassium 4.3 (3.5-5.1) mmol/L Chloride 107 (98-107) mmol/L Carbon Dioxide 21 L (22-30) mmol/L Anion Gap 9 mmol/L BUN 16 (9-20) mg/dL Creatinine 1.29 H (0.66-1.25) mg/dL Est GFR (CKD-EPI)AfAm 83 (>60 ml/min/1.73 sqM) Est GFR (CKD-EPI)NonAf 72 (>60 ml/min/1.73 sqM) Glucose 99 (74-99) mg/dL Plasma Lactic Acid Mathieu 1.1 (0.7-2.0) mmol/L Calcium 8.5 (8.4-10.2) mg/dL Total Bilirubin 2.1 H (0.2-1.3) mg/dL AST 735 H (17-59) U/L ALT 384 H (4-49) U/L Alkaline Phosphatase 120 (38-126) U/L Total Protein 7.6 (6.3-8.2) g/dL Albumin 4.1 (3.5-5.0) g/dL Amylase 61 (30-110) U/L Lipase 227 (23-300) U/L Disposition <Quyen Paz - Last Filed: 10/27/23 03:28> Is patient prescribed a controlled substance at d/c from ED?: No Time of Disposition: 04:40 <Luis Angel Parker - Last Filed: 11/07/23 21:40> Clinical Impression: Abdominal pain, Colitis Disposition: ADMITTED IP TO THIS HOSP Condition: Fair Instructions (If sedation given, give patient instructions): Colitis (ED) Referrals: None,Stated [Primary Care Provider] - 1-2 days
[2023-10-27 00:59] VITALS: RESP 18
[2023-10-27 01:57] LABS: Basophils % (A) 0 %; Eosinophils # (A) 0.2 k/uL (0-0.7); Eosinophils % (A) 4 %; HCT 46.2 % (39.0-53.0); HGB 14.7 gm/dL (13.0-17.5); Lymphocytes # (A) 0.5 k/uL (1.0-4.8); Lymphocytes % (A) 7 %; MCH 29.7 pg (25.0-35.0); MCHC 31.7 g/dL (31.0-37.0); MCV 93.7 fL (80.0-100.0); Mean Platelet Volume 7.4; Monocytes # (A) 0.5 k/uL (0-1.0); Monocytes % (A) 7 %; Neutrophils # (A) 5.2 k/uL (1.3-7.7); Neutrophils % (A) 80 %; Platelet Count 317 k/uL (150-450); RBC 4.93 m/uL (4.30-5.90); WBC 6.5 k/uL (3.8-10.6)
[2023-10-27 02:05] LABS: ALT 384 U/L (4-49); AST 735 U/L (17-59); African American GFR (CKD) 83 (>60 ml/min/1.73 sqM); Albumin 4.1 g/dL (3.5-5.0); Alkaline Phosphatase 120 U/L (38-126); Amylase 61 U/L (30-110); Anion Gap 9 mmol/L; Blood Urea Nitrogen 16 mg/dL (9-20); Calcium 8.5 mg/dL (8.4-10.2); Carbon Dioxide 21 mmol/L (22-30); Chloride 107 mmol/L (98-107); Glucose 99 mg/dL (74-99); Lipase 227 U/L (23-300); Non-African American GFR(CKD) 72 (>60 ml/min/1.73 sqM); Potassium 4.3 mmol/L (3.5-5.1); Sodium 137 mmol/L (137-145); Total Bilirubin 2.1 mg/dL (0.2-1.3); Total Protein 7.6 g/dL (6.3-8.2)
[2023-10-27] MEDS: MORPHINE SULFATE 4 MG/ML SYRINGE IVP STA (02:11)
[2023-10-27] MEDS: ONDANSETRON 4 MG/2 ML VIAL IVP STA (02:11)
--- NOTE | 2023-10-27 04:28 | CT ---
EXAM: CT Abdomen and Pelvis With Intravenous Contrast CLINICAL HISTORY: LUQ pain TECHNIQUE: Axial computed tomography images of the abdomen and pelvis with intravenous contrast. CTDI is 44.9 mGy and DLP is 2027.5 mGy-cm. This CT exam was performed using one or more of the following dose reduction techniques: automated exposure control, adjustment of the mA and/or kV according to patient size, and/or use of iterative reconstruction technique. COMPARISON: No relevant prior studies available. FINDINGS: Lung bases: Unremarkable. No mass. No consolidation. ABDOMEN: Liver: 17.2 cm length.. No mass. Gallbladder and bile ducts: Unremarkable. No calcified stones. No ductal dilation. Pancreas: Unremarkable. No mass. No ductal dilation. Spleen: Mild splenomegaly 14.2 cm length.. Adrenals: Unremarkable. No mass. Kidneys and ureters: Unremarkable. No solid mass. No hydronephrosis. Stomach and bowel: Collapsed stomach. No obstruction or ileus. Fluid- filled nondilated small and large bowel to the rectum with few air-fluid levels suggesting a nonspecific enterocolitis. No evidence for diverticulitis. PELVIS: Appendix: No findings to suggest acute appendicitis. Bladder: Unremarkable. No mass. Reproductive: Unremarkable as visualized. ABDOMEN and PELVIS: Intraperitoneal space: No free air. No free fluid. Bones/joints: No acute fracture. Soft tissues: Unremarkable. Vasculature: Unremarkable. No abdominal aortic aneurysm. Lymph nodes: Unremarkable. No enlarged lymph nodes. IMPRESSION: Fluid-filled nondilated small and large bowel to the rectum with few air-fluid levels suggesting a nonspecific enterocolitis. Mild splenomegaly.
[2023-10-27] MEDS: IBUPROFEN 600 MG STARTER PACK 4 TAB BTL PO STA (04:59)
[2023-10-27] MEDS: ONDANSETRON 4 MG ODT STARTER PACK 2 TAB BTL PO STA (04:59)
[2023-10-27 06:00] VITALS: BP 125/72; PULSE 80; TEMP 97.8
== END 2023-10-27 06:07 | disposition other institution (70) ==
LOC: EC 00:01
DX: K52.9 Noninfective gastroenteritis and colitis, unspecified (principal)
CPT/HCPCS: 36415; 80053; 82150; 83605; 83690; 85025; 74177; 99285; 96374; 96375; J2270; J2405; S0119; Q9967